=== PATIENT | female | born 2000 | race Caucasian/White ===

== ENCOUNTER 2023-07-06 13:39 | Emergency (ER) | payer OTHER, SELFPAY ==
[2023-07-06 13:49] VITALS: BP 102/59
[2023-07-06 14:18] LABS: Urine Albumin Trace (Neg - Trace); Urine Bilirubin 1+ (Negative); Urine Character Clear (Clear); Urine Color Yellow; Urine Glucose Negative (Negative); Urine Ketone Negative (Negative); Urine Leukocyte Trace (Negative); Urine Nitrite Negative (Negative); Urine Occult Blood Negative (Negative); Urine Specific Gravity 1.015 (<1.030); Urine Urobilinogen Negative (Neg - 1+)
[2023-07-06 14:30] LABS: Urine Mucus Few; Urine Squamous Cell >30 /LPF (Few)
[2023-07-06 14:31] LABS: Urine Bacteria Few (Negative)
[2023-07-06 14:32] LABS: Urine Red Blood Cell 0-2 /HPF (0-2)
[2023-07-06 15:29] LABS: % Basophils 0.2 % (0-2); % Eosinophils 0.1 % (0-6); % Immature Granulocytes 0.5 % (0-0.5); % Lymphocytes 2.2 % (20.5-51.1); % Monocytes 3.7 % (1.7-9.3); % Neutrophils 93.3 % (42.2-75.2); Absolute Immature Granulocytes 0.1 10^3/uL (0-0.05); Absolute Lymphocytes 0.3 10^3/uL (1.2-3.4); Absolute Monocytes 0.5 10^3/uL (0.1-0.6); Absolute Neutrophils 11.5 10^3/uL (1.4-6.5); Hematocrit 40.5 % (37.0-47.0); Hemoglobin 14.2 g/dL (12.0-16.0); Mean Corp Hgb Conc. 35.1 g/dL (33.0-37.0); Mean Corpuscular Hgb 31.8 pg (27.0-31.0); Mean Corpuscular Volume 90.8 fL (81.0-99.0); Mean Platelet Volume 9.3 fL (7.4-10.4); Nucleated Red Blood Cells % 0 %; Platelet Count 286 10^3/uL (130-400); Red Blood Cell Count 4.46 10^6/uL (4.20-5.40); Red Cell Dist. Width 12.3 % (11.5-14.5); White Blood Cell Count 12.3 10^3/uL (4.8-10.8)
[2023-07-06] MEDS: ZOFRAN 4 MG IV (15:42)
[2023-07-06] MEDS: NSS 1000 IV (15:42)
[2023-07-06 15:47] LABS: HCG, Serum Qualitative Screen Negative
[2023-07-06 15:49] LABS: ALT (SGPT) 29 U/L (0-35); AST (SGOT) 35 U/L (14-36); Albumin 4.5 g/dl (3.5-5.0); Alkaline Phosphatase 48 U/L (38-126); Blood Urea Nitrogen 20 mg/dl (7-17); Carbon Dioxide 28 mmol/L (22-30); Chloride 100 mmol/L (98-107); Glucose 123 mg/dl (70-99); Lipase 37 U/L (23-300); Potassium 4.5 mmol/L (3.5-5.1); Sodium 134 mmol/L (135-145); Total Protein 6.7 g/dl (6.3-8.2); eGFR > 60.00
[2023-07-06] MEDS: TORADOL 15 MG IV (15:56)
--- NOTE | 2023-07-06 16:24 | ED.GENMED ---
History of Present Illness
<Caroline Moncada PA-C - Last Filed: 07/08/23 07:59>
General
Chief Complaint: Abdominal Symptoms
Source: patient
Exam Limitations: none
Time Seen by Provider: 07/06/23 15:08
Nursing documentation reviewed up to this point in time: agreed with
Travel History
Have you had any contact with someone who has COVID-19?: No
Do you have any symptoms of coronavirus? Fever > 100 degrees, chills, cough, shortness of breath, sore throat, loss of taste or smell, muscle aches, or headache?: No
History of Present Illness
History of Present Illness:
PT IS A 22 Y/O F here for nausea and vomiting that started at 2 am - she vomited about 12 times total and dry heaved many times
she has some upper abd and lower abd and lower back pain as well as a headache
chilsl but no fever
no diarrhea
pt has h/o utis, she could maybe have one, but says she isn't sure; no significnat pressure, freuqncy, burning but mild lower pain
denies sore throat, nasal congestion, syncope.
pt is very thirsty but is unable to tolerate po so she didn't take her wellbutrin and she feels like she is going through withdrawal from not having 1 dose (her emotions are heightened)
Past History
<Caroline Moncada PA-C - Last Filed: 07/08/23 07:59>
Past History
ED Past Medical History: Asthma and Psychiatric (bipolar, ADD)
ED Past Surgical History: None
Patient has exhibited threatening behavior?: No
PSI?: No
Social History
Tobacco: Non-smoker
Alcohol: None
Drug: None
Personal: Single
Living: with roommate
Employment: Student
Review of Systems
<Caroline Moncada PA-C - Last Filed: 07/08/23 07:59>
Review of Systems
Allergies reviewed?: Yes
All Other Systems: Not applicable
Phy Exam
<Caroline Moncada PA-C - Last Filed: 07/08/23 07:59>
Physical Exam
Physical Exam:
GENERAL: Alert , in no apparent distress, nontoxic
EYE: pupils equal and reactive
NECK: Supple
ENT: o/p clr, mouth dry
CARDIAC: Regular rate and rhythm .
LUNGS: Clear breath sounds bilaterally, no acute respiratory distress, no wheezes/rales/rhonchi
ABDOMEN: Soft, without focal tenderness, no r/g, no cvat, normal bowel sounds
nondistended
no mcburney's point tenderness
neg rosvigs and neg obturator
NEUROLOGICAL: Alert and oriented, no focal neuro deficits
SKIN: Warm and dry, skin intact.
MUSCULOSKELETAL: No edema, well perfused. neg tripp's sign
PSYCH: Normal and appropriate interaction.
Course
<TERRI Anaya Last Filed: 07/08/23 07:59>
Orders/Labs/Results
Orders:
Orders
07/06/23 13:52
Test Result ONCE
07/06/23 13:59
Urinalysis Reflex To Culture Urgent
Date Specimen was Collected: 07/06/23
Time Specimen was Collected: 13:52
Urine Microscopic Reflex Cult Urgent
07/06/23 15:19
Complete Blood Count/With Diff Urgent
Comprehensive Metabolic Panel Urgent
HCG, Serum Qualitative Screen Urgent
Lipase Urgent
07/06/23 15:39
0.9% Sodium Chloride 1000 ml [Nss] 1,000 ml IV BOLUS
Ondansetron Injectable [Zofran] 4 mg IV NOW STA
07/06/23 15:51
Ketorolac [Toradol] 15 mg IV NOW STA
07/06/23 16:54
Urinalysis Reflex To Culture Urgent
Date Specimen was Collected: 07/06/23
Time Specimen was Collected: 16:50
Urine Microscopic Reflex Cult Urgent
Abnormal Lab Results
07/06/23 07/06/23 07/06/23
13:59 15:19 16:54
WBC 12.3 H 10^3/uL
(4.8-10.8)
MCH 31.8 H pg
(27.0-31.0)
Abs Immat Gran (auto) 0.1 H 10^3/uL
(0-0.05)
Absolute Neuts (auto) 11.5 H 10^3/uL
(1.4-6.5)
Absolute Lymphs (auto) 0.3 L 10^3/uL
(1.2-3.4)
Neutrophils % 93.3 H %
(42.2-75.2)
Lymphocytes % 2.2 L %
(20.5-51.1)
Sodium 134 L mmol/L
(135-145)
BUN 20 H mg/dl
(7-17)
Glucose 123 H mg/dl
(70-99)
Urine Ketones Trace A
(Negative)
Urine Bilirubin 1+ A 1+ A
(Negative) (Negative)
Leukocyte Esterase Rfl Trace A Trace A
(Negative) (Negative)
Urine Bacteria (Reflex) Few A Few A
(Negative) (Negative)
07/06/23 15:19
07/06/23 15:19
Vital Signs
Initial and Last Documented VS:
Initial Vital Signs
Temp Pulse Resp BP Pulse Ox
99 F 87 16 102/59 98
07/06/23 13:49 07/06/23 13:49 07/06/23 13:49 07/06/23 13:49 07/06/23 13:49
Last Documented Vital Signs
Temp Pulse Resp BP Pulse Ox
99 F 85 19 102/53 100
07/06/23 13:49 07/06/23 17:47 07/06/23 17:47 07/06/23 17:47 07/06/23 17:47
<Robin Mullen PA-C - Last Filed: 07/06/23 21:09>
Orders/Labs/Results
Orders:
Orders
07/06/23 13:52
Test Result ONCE
07/06/23 13:59
Urinalysis Reflex To Culture Urgent
Date Specimen was Collected: 07/06/23
Time Specimen was Collected: 13:52
Urine Microscopic Reflex Cult Urgent
07/06/23 15:19
Complete Blood Count/With Diff Urgent
Comprehensive Metabolic Panel Urgent
HCG, Serum Qualitative Screen Urgent
Lipase Urgent
07/06/23 15:39
0.9% Sodium Chloride 1000 ml [Nss] 1,000 ml IV BOLUS
Ondansetron Injectable [Zofran] 4 mg IV NOW STA
07/06/23 15:51
Ketorolac [Toradol] 15 mg IV NOW STA
07/06/23 16:54
Urinalysis Reflex To Culture Urgent
Date Specimen was Collected: 07/06/23
Time Specimen was Collected: 16:50
Urine Microscopic Reflex Cult Urgent
Abnormal Lab Results
07/06/23 07/06/23 07/06/23
13:59 15:19 16:54
WBC 12.3 H 10^3/uL
(4.8-10.8)
MCH 31.8 H pg
(27.0-31.0)
Abs Immat Gran (auto) 0.1 H 10^3/uL
(0-0.05)
Absolute Neuts (auto) 11.5 H 10^3/uL
(1.4-6.5)
Absolute Lymphs (auto) 0.3 L 10^3/uL
(1.2-3.4)
Neutrophils % 93.3 H %
(42.2-75.2)
Lymphocytes % 2.2 L %
(20.5-51.1)
Sodium 134 L mmol/L
(135-145)
BUN 20 H mg/dl
(7-17)
Glucose 123 H mg/dl
(70-99)
Urine Ketones Trace A
(Negative)
Urine Bilirubin 1+ A 1+ A
(Negative) (Negative)
Leukocyte Esterase Rfl Trace A Trace A
(Negative) (Negative)
Urine Bacteria (Reflex) Few A Few A
(Negative) (Negative)
07/06/23 15:19
07/06/23 15:19
Vital Signs
Initial and Last Documented VS:
Initial Vital Signs
Temp Pulse Resp BP Pulse Ox
99 F 87 16 102/59 98
07/06/23 13:49 07/06/23 13:49 07/06/23 13:49 07/06/23 13:49 07/06/23 13:49
Last Documented Vital Signs
Temp Pulse Resp BP Pulse Ox
99 F 85 19 102/53 100
07/06/23 13:49 07/06/23 17:47 07/06/23 17:47 07/06/23 17:47 07/06/23 17:47
<Caroline Moncada PA-C - Last Filed: 07/08/23 07:59>
MDM/Problems Addressed
Differential Diagnosis Includes:
gastritis, gastroenteritis, viral gi bug
MDM/Problems Addressed:
22 y/o F with h/o anxiety/depression/uti
pt says she has had nausea/vomiting since 2 am
lower back pain and upper and lower abd pain
feels naueated/dehydrated headache
no fever
pt has no focal abdominal tednerness on exam
nondistended
dry appearing
nontoxic
urine is contaminated, asked for another sample
appreciate mild leukocytosis with left shift
otherwise labs normal
zofran, fluids, toradol, reassess
<Robin Mullen PA-C - Last Filed: 07/06/23 21:09>
*Critical Care Note
Total Time (30-74mins, 75-104mins- exclusive of procedures): Not Applicable
<Robin Mullen PA-C - Last Filed: 07/06/23 21:09>
Update Note
Update Note:
Assumed care of patient from Chantelle Moncada PA-C pending repeat urinalysis. Although repeat UA does have few bacteria there are no white blood cells to suggest acute UTI. She is discharged in stable condition
ED Attending Note
<Caroline Moncada PA-C - Last Filed: 07/08/23 07:59>
-
Portions of this chart may have been created with voice recognition software.� Occasional wrong word or��sound alike� substitutions may have occurred due to the inherent limitations of voice recognition software.
Discharge Plan
Departure
Patient Disposition: Home (Routine Discharge)
Date of Disposition: 07/06/23
Time of Disposition: 18:55
Patient with high blood pressure during this ER visit?: No
Condition: Fair
Covid-19: Not Applicable
Discharge Problem:
Vomiting
Instructions: Nausea and Vomiting, Adult (DC)
Prescriptions:
New
ondansetron 4 mg tablet,disintegrating
4 mg PO Q8H PRN (Reason: nausea and vomiting) 1 Days Qty: 2 0RF
No Action
mirtazapine 15 MG tablet
15 mg PO HS
lamotrigine 100 MG tablet
200 mg PO DAILY
fluticasone propion-salmeterol 1 DISK blister with device
1 inh inhalation DAILY
albuterol sulfate 1 PUFF HFA aerosol inhaler
1 puff inhalation Q4H
Latuda
60 mg PO DAILY
Referrals:
Joe Tim MD [Family Provider] - Follow up in 2-3 days
Stand Alone Forms: Return to Work
Activity Restrictions/Additional Instructions:
YOUR SYMPTOMS COULD BE VIRAL - YOU WERE MILDLY DEHYDRATED AND HAD A LOW GRADE TEMPERATURE
WE TREATED YOU WITH ZOFRAN WHICH IS FOR NAUESA - YOU CAN TAKE 1 DOSE EVERY 8 HOURS NEEDED FOR VOMITING
DRINK FLUIDS TOLERATED
RETURN TO THE ER FOR SEVERE SYMPTOMS, WORSENING BELLY PAIN, HIGH FEVER, DEHYDRATION, PASSING OUT OR ANY CONCERNS.
NOTE THAT SOMETIMES EARLY APPENDICITIS PRESENTS THIS WAY
RETURN FOR WORSENING PROGRESSIVE FOCAL PAIN IN YOUR ABDOMEN.
Interventions
Interventions:
*Nursing Disposition Last Done: 07/06/23 19:17
AW-Ptcpgi-Vvvumnolfo Assessment Last Done: 07/06/23 15:22
Discharge Date and Time
Discharge Date/Time: 07/06/23 19:17
[2023-07-06 17:43] LABS: Urine Albumin Trace (Neg - Trace); Urine Bilirubin 1+ (Negative); Urine Character Clear (Clear); Urine Color Yellow; Urine Glucose Negative (Negative); Urine Ketone Trace (Negative); Urine Leukocyte Trace (Negative); Urine Nitrite Negative (Negative); Urine Occult Blood Negative (Negative); Urine Urobilinogen Negative (Neg - 1+)
[2023-07-06 17:47] VITALS: BP 102/53
[2023-07-06 18:47] LABS: Urine Bacteria Few (Negative); Urine Red Blood Cell 0-2 /HPF (0-2); Urine Squamous Cell 0-2 /LPF (Few); Urine White Cell 0-2 /HPF (0-5)
== END 2023-07-06 19:17 | disposition home or self-care (01) ==
LOC: EMR 13:39
PROVIDERS: Emergency Medicine; Physician Assistant; EMERGENCY PHYSICIAN Emergency Medicine; FAMILY PHYSICIAN Family Medicine
DX: R11.2 Nausea with vomiting, unspecified (principal); R68.83 Chills (without fever); R51.9 Headache, unspecified; R10.30 Lower abdominal pain, unspecified; M54.50 Low back pain, unspecified; F41.9 Anxiety disorder, unspecified; Z87.440 Personal history of urinary (tract) infections
CPT/HCPCS: 99284; 96374; 96375; 96361 ×2; 80053; 81003; 81015; 83690; 84703; 85025

== ENCOUNTER 2024-04-25 21:18 | Emergency (ER) | payer OTHER, SELFPAY ==
[2024-04-25 21:24] VITALS: BP 103/71
--- NOTE | 2024-04-25 22:13 | ED.SKININJ ---
HPI-Injury
General
Chief Complaint: Skin Surface Trauma
Source: patient and family
Time Seen by Provider: 04/25/24 22:05
Nursing documentation reviewed up to this point in time: agreed with
History of Present Illness-Injury
Initial Injury comments:
Pleasant 23-year-old female presents the emergency department with superficial laceration of the lateral side of the left index finger. Patient states that she was chopping onions and felt the overpowering urge to cry. She shot her eyes and
continued jaw pain accidentally slicing into her left knee. Bleeding was controlled with direct pressure. Denies any other injury. Last tetanus shot was greater than 10 years ago.
Past History
Past History
ED Past Medical History: Asthma and Psychiatric (bipolar, ADD)
ED Past Surgical History: None
Patient has exhibited threatening behavior?: No
PSI?: No
Social History
Tobacco: Non-smoker
Alcohol: None
Drug: None
Personal: Single
Living: with roommate
Employment: Student
Phy Exam
General Physical Exam
General Presentation: well appearing and no apparent distress
General age: appears stated age
General Skin: warm and dry
General Habitus: normal
General Mental: alert
General Hydration: appears well hydrated
ENT Exam
ENT Exam: EOMI and neck supple
Eye Exam
Eye Exam: PERRL and EOMI
Pulmonary Exam
Pulmonary Exam: no respiratory distress and no cough
Neurological Exam
Neurological Exam: alert and oriented x3
Musculoskeletal Exam
Musculoskeletal Exam: full ROM
Skin Exam
Skin Exam: normal color and warm/dry
Psychiatric Exam
Psychiatric Exam: normal mood/affect and anxious
Course
Orders/Labs/Results
Orders:
Orders
04/25/24 22:13
Tetanus/Diphth/Acelpertussis [Adacel] 0.5 ml IM .ONCE ONE
Vital Signs
Initial and Last Documented VS:
Initial Vital Signs
Temp Pulse Resp BP Pulse Ox
98.2 F 67 19 103/71 100
04/25/24 21:24 04/25/24 21:24 04/25/24 21:24 04/25/24 21:24 04/25/24 21:24
Last Documented Vital Signs
Temp Pulse Resp BP Pulse Ox
98.2 F 67 19 103/71 100
04/25/24 21:24 04/25/24 21:24 04/25/24 21:24 04/25/24 21:24 04/25/24 21:24
Procedures
Laceration Closure
Left Lateral Distal First Finger:
Status of Wound: clean
Size of Wound in cm: 1
Description of Wound Edges: sharp and flap-well vascularized
Preparation: cleaned with soap & water
Revision/Debridement: routine- no revision
Wound exploration: explored to base- no FB
Type of Closure: Dermabond-skin glue
Additional information:
steri strips over glue
Patient tolerated procedure well with no immediate adverse effects.
*Critical Care Note
Total Time (30-74mins, 75-104mins- exclusive of procedures): Not Applicable
ED Attending Note
-
Portions of this chart may have been created with voice recognition software.� Occasional wrong word or��sound alike� substitutions may have occurred due to the inherent limitations of voice recognition software.
Discharge Plan
Departure
Patient Disposition: Home (Routine Discharge)
Date of Disposition: 04/25/24
Time of Disposition: 22:15
Patient with high blood pressure during this ER visit?: No
Condition: Good
Discharge Problem:
Superficial laceration of finger
Instructions: Wound Care (DC), Tdap (Tetanus, Diphtheria, Pertussis) Vaccine CDC Vaccine Information Statement (VIS), Steri-Strips over Glued Wound
Prescriptions:
No Action
mirtazapine 15 MG tablet
15 mg PO HS
lamotrigine 100 MG tablet
200 mg PO DAILY
fluticasone propion-salmeterol 1 DISK blister with device
1 inh inhalation DAILY
albuterol sulfate 1 PUFF HFA aerosol inhaler
1 puff inhalation Q4H
Latuda
60 mg PO DAILY
ondansetron 4 mg tablet,disintegrating
4 mg PO Q8H PRN (Reason: nausea and vomiting) 1 Days Qty: 2 0RF
Referrals:
Mulu Evans MD [Family Provider] -
Stand Alone Forms: Back to School
Activity Restrictions/Additional Instructions:
Your tetanus shot was updated tonight.
It was a pleasure meeting you and taking part in your care. We hope for your continued healing and wellness.
Please read discharge instructions in their entirety. However, they are for general education and may not describe your exact diagnosis at discharge. Information on your ER visit and medical conditions were discussed with you along with appropriate
follow up information...
If indicated, please take your medications as instructed and indicated on discharge paperwork.
Please schedule a follow up appointment as directed. Call to schedule an appointment
Please return to the emergency department with ANY change in, persisting, or worsening of symptoms. If any of your symptoms do not improve, or persist, or become more severe within 6-12 hours, please return to the emergency department for further
care.
Please return to the emergency department if you develop a headache, neck pain/stiffness, fever greater than 100.4F, chest pain, shortness of breath, persistent nausea, vomiting, slurred speech, difficulty walking, numbness/tingling, weakness, signs
of infection or any other symptoms that are worrisome to you.
If you have any questions or concerns please do not hesitate to call the Hospital at or E-mail me directly at [email or web address]
Interventions
Interventions:
*Risk Screen - Suicide Last Done: 04/25/24 21:24
*General Assessment Last Done: 04/25/24 21:24
*Neglect/Abuse Screening Last Done: 04/25/24 21:24
*ED COVID-19 Vaccine History Last Done: 04/25/24 21:33
ED-Skin Assessment Last Done: 04/25/24 21:33
Discharge Date and Time
Print Language: MAORI
[2024-04-25] MEDS: ADACEL 0.5 ML IM (22:23)
[2024-04-25 22:38] VITALS: BP 104/70
== END 2024-04-25 22:39 | disposition home or self-care (01) ==
LOC: EMR 21:18
PROVIDERS: EMERGENCY PHYSICIAN Student in an Organized Health Care Education/Training Program; FAMILY PHYSICIAN Family Medicine
DX: S61.211A Laceration without foreign body of left index finger without damage to nail, initial encounter (principal); W27.8XXA Contact with other nonpowered hand tool, initial encounter; J45.909 Unspecified asthma, uncomplicated; Z23 Encounter for immunization
CPT/HCPCS: 12001; 99282; 90471; 90715

== ENCOUNTER 2025-01-10 14:14 | Emergency (ER) | payer OTHER, SELFPAY ==
[2025-01-10 14:25] VITALS: BP 103/59
[2025-01-10] MEDS: REGLAN 5 MG IV (18:05)
[2025-01-10] MEDS: NSS 1000 IV (18:05)
[2025-01-10] MEDS: TORADOL 15 MG IV (18:05)
[2025-01-10] MEDS: BENADRYL 25 MG IV (18:05)
--- NOTE | 2025-01-10 18:12 | ED.GENMED ---
History of Present Illness
General
Chief Complaint: Headache
Time Seen by Provider: 01/10/25 16:56
History of Present Illness
History of Present Illness:
24-year-old female with history of migraines presenting to the emergency department for persistent migraines. Patient reports that symptoms have been ongoing for years, however the past few months have been worsening. She has been unable to see a
neurologist as of yet. She is currently on Latuda and Wellbutrin, recently started sumatriptan hand as needed. Her doctor put her on propranolol and she started taking it 2 days ago, however noted that makes her dizzy and lightheaded. Headache is
frontal. Does note that headaches are worse with stress. Denies injury or trauma. Notes head imaging in the past, however not for the past 3 years. Notes photophobia and phonophobia. Denies weakness or sensory deficits to extremities. Denies
neck pain or additional acute medical complaints.
Past History
Past History
ED Past Medical History: Asthma and Psychiatric (bipolar, ADD)
ED Past Surgical History: None
Patient has exhibited threatening behavior?: No
PSI?: No
Social History
Tobacco: Non-smoker
Alcohol: None
Drug: None
Personal: Single
Living: with roommate
Employment: Student
Phy Exam
Physical Exam
Physical Exam:
General: Well-appearing, no clinical signs of dehydration, nontoxic and in no acute distress
HEENT: protecting airway, pupils equal and reactive, extraocular movements intact
Neck: appears supple
CV: Normal heart rate, regular rhythm
Resp: No accessory muscle use, no increased work of breathing, lungs clear to auscultation bilaterally
Abd: No distention
Extremities: No deformities, no swelling
Neuro: alert, no focal neurologic deficit
: deferred
Rectal: deferred
Psych: Normal affect
Skin: Intact
Course
Orders/Labs/Results
Orders:
Orders
01/10/25 17:49
0.9% Sodium Chloride 1000 ml [Nss] 1,000 ml IV BOLUS
Diphenhydramine [Benadryl] 25 mg IV NOW STA
Ketorolac [Toradol] 15 mg IV NOW STA
Metoclopramide [Reglan] 5 mg IV NOW STA
01/10/25 17:50
CT Head W/o Iv Contrast Urgent
Comment:
Reason For Exam: headaches
Vital Signs
Initial and Last Documented VS:
Initial Vital Signs
Temp Pulse Resp BP Pulse Ox
98.9 F 62 16 103/59 98
01/10/25 14:25 01/10/25 14:25 01/10/25 14:25 01/10/25 14:25 01/10/25 14:25
Last Documented Vital Signs
Temp Pulse Resp BP Pulse Ox
98.9 F 62 16 103/59 98
01/10/25 14:25 01/10/25 14:25 01/10/25 14:25 01/10/25 14:25 01/10/25 18:13
MDM/Problems Addressed
MDM/Problems Addressed:
24-year-old female presenting for persistent migraines. Vital signs on arrival are normal.
On exam, patient resting comfortably, no acute distress. Symptom presentation and physical exam appears most consistent with tension versus migrainous headache. No concern for infectious etiology, afebrile, no meningeal signs. No focal neurologic
deficits on exam or concern for acute central neurologic process. No report of trauma or concern for any acute traumatic intracranial abnormality. Pain is not worse in the morning time or at nighttime, without concern for increased ICP. Blood
pressure within normal limits, without concern for pseudotumor cerebri. No tenderness to the temporal arteries, without concern for temporal arteritis. Given that symptoms have been worsening, no recent head imaging, will screen with CT brain
imaging. Will treat with migraine cocktail and reassess for improvement.
20:40 -CT negative for acute process. On reassessment patient remained stable. Feel stable for discharge with outpatient follow-up. Return precautions discussed and patient verbalized understanding
*Pulse Oximetry
SaO2: 98
Oxygen Mode of Delivery: Room air
Patient hypoxic: no
*Critical Care Note
Total Time (30-74mins, 75-104mins- exclusive of procedures): Not Applicable
ED Attending Note
-
Portions of this chart may have been created with voice recognition software.� Occasional wrong word or��sound alike� substitutions may have occurred due to the inherent limitations of voice recognition software.
Discharge Plan
Departure
Prescriptions:
No Action
mirtazapine 15 MG tablet
15 mg PO HS
lamotrigine 100 MG tablet
200 mg PO DAILY
fluticasone propion-salmeterol 1 DISK blister with device
1 inh inhalation DAILY
albuterol sulfate 1 PUFF HFA aerosol inhaler
1 puff inhalation Q4H
Latuda
60 mg PO DAILY
ondansetron 4 mg tablet,disintegrating
4 mg PO Q8H PRN (Reason: nausea and vomiting) 1 Days Qty: 2 0RF
Referrals:
Tiffany Galdamez CRNP [Family Provider, Family Practice]
Interventions
Interventions:
*Risk Screen - Suicide Last Done: 01/10/25 14:25
*General Assessment Last Done: 01/10/25 14:25
*Neglect/Abuse Screening Last Done: 01/10/25 14:25
*ED- Fall Risk Assessment Last Done: 01/10/25 14:25
*ED COVID-19 Vaccine History Last Done: 01/10/25 14:25
ED- Neurological Assessment Last Done: 01/10/25 16:46
Discharge Date and Time
Print Language: EGYPTIAN
[2025-01-10 20:49] VITALS: BP 99/65
== END 2025-01-10 20:49 | disposition home or self-care (01) ==
LOC: EMR 14:14
PROVIDERS: EMERGENCY PHYSICIAN Student in an Organized Health Care Education/Training Program; FAMILY PHYSICIAN Nurse Practitioner Family
DX: G43.909 Migraine, unspecified, not intractable, without status migrainosus (principal); J45.909 Unspecified asthma, uncomplicated; F31.9 Bipolar disorder, unspecified; F98.8 Other specified behavioral and emotional disorders with onset usually occurring in childhood and adolescence
CPT/HCPCS: 99284; 96374; 96375; 96361; 70450

== ENCOUNTER → 2025-04-11 10:59 | Outpatient (REF) | payer OTHER, SELFPAY | LOC: RAD 10:59 | PROVIDERS: ATTENDING PHYSICIAN Internal Medicine | DX: R19.8 Other specified symptoms and signs involving the digestive system and abdomen (principal) | CPT/HCPCS: 74019 ==